=== PATIENT | female | born 1945 | race Caucasian/White ===

== ENCOUNTER 2020-02-25 14:34 | Emergency (ER) | payer OTHER ==
[~2020-02-25] VITALS: Ht 157.5 cm; Wt 85.7 kg
[2020-02-25 14:36] VITALS: BP 128/81
--- NOTE | 2020-02-25 14:50 | NUR ---
COVID SPECIMEN COLLECTED AND SENT TO LAB.
--- NOTE | 2020-02-25 14:53 | NUR ---
Patient discharged to home in stable condition. Written and verbal after care instructions given. Patient verbalizes understanding of instruction.
--- NOTE | 2020-02-28 05:13 | NUR ---
REC'D NEGATIVE RESULT FOR COVID TEST.
== END 2020-02-25 14:59 | disposition home or self-care (01) ==
LOC: ER 14:40
DX: Z20.828 Contact with and (suspected) exposure to other viral communicable diseases (principal); R73.03 Prediabetes; I10 Essential (primary) hypertension
CPT/HCPCS: 99283; C9803; U0003